=== PATIENT | female | born 1995 | race Caucasian/White ===

== ENCOUNTER 2017-03-13 10:08 | Emergency (ER) | payer BC ==
[~2017-03-13] VITALS: Ht 172.7 cm; Wt 92.0 kg
[~2017-03-13 10:08] MED LIST: BCP; STRA80CA PO
[2017-03-13 10:18] VITALS: BP 112/82; PULSE 111; RESP 22; TEMP 98.2; O2SAT 100
[2017-03-13] MEDS ORDERED: SODIUM CHLOR 0.9% 1000 ML INJ 1,000 ML IV ONE (10:48)
--- NOTE | 2017-03-13 10:52 | PD ---
HPI Chief Complaint: GI Complaint Time Seen by Provider: 10:41 Travel History International Travel<30 days: No Contact w/Intl Traveler<30days: No Traveled to known affect area: No History of Present Illness HPI The patient was seen and examined in the presence of the nurse. This patient complains of nausea and vomiting and diarrhea. Duration 3 days. She is worried about being dehydrated. She is not having abdominal pain or presyncopal symptoms. No ill contacts. Not having any fever. No alleviating factors. No Exacerbating factors. PFSH Past Medical History ?: Not LMP: 03/02/17 Social History Alcohol Use: Yes Tobacco Use: No Substance Use: No Allergies-Medications (Allergen,Severity, Reaction): Uncoded Allergies: CHINMAY (Allergy, Severe, HIVES, 07/20/15) Reported Meds & Prescriptions Reported Meds & Active Scripts Active Reported Pantoprazole (Pantoprazole Sodium) 40 Mg Tab 40 Mg PO DAILY Strattera (Atomoxetine HCl) 80 Mg Cap 80 Mg PO DAILY [Bcp] Review of Systems General / Constitutional: No: Fever Eyes: No: Visual changes HENT: No: Headaches Cardiovascular: No: Chest Pain or Discomfort Respiratory: No: Shortness of Breath Gastrointestinal: Positive: Nausea, Vomiting, Diarrhea, No: Abdominal Pain Genitourinary: No: Dysuria Musculoskeletal: No: Pain Skin: No Rash Neurologic: No: Weakness Psychiatric: No: Depression Endocrine: No: Polydipsia Hematologic/Lymphatic: No: Easy Bruising Physical Exam Narrative GENERAL: Well-nourished, well-developed patient in no apparent distress. SKIN: Focused skin assessment reveals no rash and nodules. Skin is Warm and dry. HEAD: Atraumatic. Normocephalic. EYES: Pupils equal and round. No scleral icterus. No injection or drainage. ENT: No nasal bleeding or discharge. Mucous membranes pink and moist. NECK: Trachea midline. No JVD. CARDIOVASCULAR: Regular rate and rhythm. No murmur appreciated. RESPIRATORY: No accessory muscle use. Clear to auscultation. Breath sounds equal bilaterally. GASTROINTESTINAL: Abdomen soft, non-tender, nondistended. Hepatic and splenic margins not palpable. MUSCULOSKELETAL: No obvious deformities. No clubbing. No cyanosis. No edema. NEUROLOGICAL: Awake and alert. No obvious cranial nerve deficits. Motor grossly within normal limits. Normal speech. PSYCHIATRIC: Appropriate mood and affect; insight and judgment normal. Data Data Last Documented VS Vital Signs Date Time Temp Pulse Resp B/P (MAP) Pulse Ox O2 Delivery O2 Flow Rate FiO2 03/13/17 10:18 98.2 111 22 112/82 (92) 100 Orders Orders Complete Blood Count With Diff (03/13/17 10:48) Basic Metabolic Panel (Bmp) (03/13/17 10:48) Beta Hcg (Quant/Titer) (03/13/17 10:48) Iv Access Insert/Monitor (03/13/17 10:48) Ondansetron Inj (Zofran Inj) (03/13/17 11:00) Sodium Chlor 0.9% 1000 Ml Inj (Ns 1000 M (03/13/17 10:48) Sodium Chloride 0.9% Flush (Ns Flush) (03/13/17 11:00) Labs Laboratory Tests Test 03/13/17 11:05 03/13/17 12:12 Blood Urea Nitrogen 9 MG/DL Creatinine 1.00 MG/DL Random Glucose 107 MG/DL Calcium Level 9.4 MG/DL Sodium Level 139 MEQ/L Potassium Level 3.8 MEQ/L Chloride Level 108 MEQ/L Carbon Dioxide Level 23.2 MEQ/L Anion Gap 8 MEQ/L Estimat Glomerular Filtration Rate 69 ML/MIN Human Chorionic Gonadotropin, Quant LESS THAN 1 MIU/ML White Blood Count 7.3 TH/MM3 Red Blood Count 4.20 MIL/MM3 Hemoglobin 10.1 GM/DL Hematocrit 31.3 % Mean Corpuscular Volume 74.7 FL Mean Corpuscular Hemoglobin 24.1 PG Mean Corpuscular Hemoglobin Concent 32.2 % Red Cell Distribution Width 18.1 % Platelet Count 329 TH/MM3 Mean Platelet Volume 7.9 FL Neutrophils (%) (Auto) 70.8 % Lymphocytes (%) (Auto) 23.5 % Monocytes (%) (Auto) 5.2 % Eosinophils (%) (Auto) 0.3 % Basophils (%) (Auto) 0.2 % Neutrophils # (Auto) 5.2 TH/MM3 Lymphocytes # (Auto) 1.7 TH/MM3 Monocytes # (Auto) 0.4 TH/MM3 Eosinophils # (Auto) 0.0 TH/MM3 Basophils # (Auto) 0.0 TH/MM3 CBC Comment DIFF FINAL Differential Comment MDM Medical Decision Making Medical Screen Exam Complete: Yes Emergency Medical Condition: Yes Medical Record Reviewed: Yes Differential Diagnosis Gastroenteritis , dehydration, colitis Narrative Course I have reviewed the patient's electronic medical record. IV placed CBC shows normal white cell count and mild anemia Metabolic profile is normal Beta hCG is negative I gave her 1 L normal saline IV bolus and IV Zofran Patient is euvolemic, stable for outpatient follow-up. Offered her nausea medicine but she declines Diagnosis Primary Impression: Nausea vomiting and diarrhea Additional Instructions: The patient was advised to follow up with their physician and return if they worsen. I have recommended clear liquids for 24 hours, then gradually advance as tolerated. Med/Other Pt SpecificInfo: Other Disposition: 01 DISCHARGE HOME Condition: Stable Jorge Alberto Galloway MD Mar 13, 2017 10:52
[2017-03-13] MEDS ORDERED: SODIUM CHLORIDE 0.9% FLUSH 10 ML FLUSH IVF PRN (11:00)
[2017-03-13] MEDS ORDERED: ONDANSETRON HCL 4 MG/2 ML VIAL IV PUSH ONE (11:00)
[2017-03-13] MEDS ORDERED: PANT40TA3 PO (11:13)
[2017-03-13 12:06] LABS: BICARBONATE 23.2 MEQ/L (21.0-32.0); BLOOD UREA NITROGEN 9 MG/DL (7-18); CALCIUM 9.4 MG/DL (8.5-10.1); CHLORIDE 108 MEQ/L (98-107); GLOMERULAR FILTRATION RATE 69 ML/MIN (>89); GLUCOSE,RANDOM 107 MG/DL (74-106); SODIUM (NA) 139 MEQ/L (136-145)
[2017-03-13 12:23] LABS: AUTOMATED NEUTROPHIL # 5.2 TH/MM3 (1.8-7.7); BASOPHIL % 0.2 % (0.0-2.0); EOSINOPHIL % 0.3 % (0.0-4.0); HEMATOCRIT 31.3 % (35.0-46.0); HEMOGLOBIN 10.1 GM/DL (11.6-15.3); LYMPH % 23.5 % (9.0-44.0); LYMPHOCYTE # 1.7 TH/MM3 (1.0-4.8); MEAN CELL VOLUME 74.7 FL (80.0-100.0); MEAN CORPUSCULAR HEMOGLOBIN 24.1 PG (27.0-34.0); MEAN CORPUSCULAR HGB CONC 32.2 % (32.0-36.0); MEAN PLATELET VOLUME 7.9 FL (7.0-11.0); MONO % 5.2 % (0.0-8.0); MONOCYTE # 0.4 TH/MM3 (0-0.9); NEUT % 70.8 % (16.0-70.0); PLATELET COUNT 329 TH/MM3 (150-450); RED CELL DISTRIBUTION WIDTH 18.1 % (11.6-17.2); WHITE BLOOD COUNT 7.3 TH/MM3 (4.0-11.0)
== END 2017-03-13 13:06 | disposition home or self-care (01) ==
LOC: NEPD 10:08
DX: R11.2 Nausea with vomiting, unspecified (principal); R19.7 Diarrhea, unspecified; D64.9 Anemia, unspecified; Z79.899 Other long term (current) drug therapy
CPT/HCPCS: 80048; 84702; 85025; 96361; 96374; 99284; J2405; J7030